=== PATIENT | male | born 1950 | race Caucasian/White ===

== ENCOUNTER 2017-01-25 13:57 | Emergency (ER) | payer OTHER, MEDICARE ==
[2017-01-25 15:01] LABS: HEMOGLOBIN 15.4 gm/dl (14.0-17.5); RED BLOOD COUNT 5.06 M/UL (4.20-5.50)
[2017-01-25 15:19] LABS: BUN/CREATININE RATIO 13 (0-10)
== END 2017-01-25 18:00 | disposition home or self-care (01) ==
LOC: ER1 13:57
PROVIDERS: Emergency Medicine
DX: N20.9 Urinary calculus, unspecified (principal); E11.9 Type 2 diabetes mellitus without complications; E78.5 Hyperlipidemia, unspecified; I10 Essential (primary) hypertension; F17.200 Nicotine dependence, unspecified, uncomplicated; Z87.442 Personal history of urinary calculi
CPT/HCPCS: 36415; 80053; 81001; 82150; 83690; 85025; 96374; 96375; 99284; J2270; J2405

== ENCOUNTER 2020-12-31 12:02 | Emergency (ER) | payer OTHER, MEDICARE ==
[~2020-12-31 12:02] MED LIST: IBUPROFEN400 MG PO; ZANAFLEX4 MG PO
[2020-12-31 12:47] LABS: HEMOGLOBIN 16.2 gm/dl (14.0-17.5); RED BLOOD COUNT 5.3 M/UL (4.20-5.50); WHITE BLOOD COUNT 7.4 K/UL (4.5-11.0)
[2020-12-31 13:07] LABS: BUN/CREATININE RATIO 11 (0-10)
[2020-12-31] MEDS ORDERED: Voltaren Gel 1 % TOP (14:43)
== END 2020-12-31 15:11 | disposition home or self-care (01) ==
LOC: ER1 12:02
PROVIDERS: Physician Assistant Medical
DX: S20.212A Contusion of left front wall of thorax, initial encounter (principal); E78.00 Pure hypercholesterolemia, unspecified; I11.9 Hypertensive heart disease without heart failure; E11.9 Type 2 diabetes mellitus without complications; F17.210 Nicotine dependence, cigarettes, uncomplicated; Z79.02 Long term (current) use of antithrombotics/antiplatelets; W19.XXXA Unspecified fall, initial encounter; Y92.009 Unspecified place in unspecified non-institutional (private) residence as the place of occurrence of the external cause
CPT/HCPCS: 70450; 71111; 73030; 80053; 81001; 82550; 82553; 83874; 84484; 85025; 93005; 99284

== ENCOUNTER 2022-04-04 19:06 | Emergency (ER) | payer OTHER, MEDICARE ==
[~2022-04-04 19:06] MED LIST changes: +Voltaren Gel 1 % TOP
== END 2022-04-04 22:25 | disposition home or self-care (01) ==
LOC: ER1 19:06
DX: S51.812A Laceration without foreign body of left forearm, initial encounter (principal); F17.200 Nicotine dependence, unspecified, uncomplicated; I11.9 Hypertensive heart disease without heart failure; E11.9 Type 2 diabetes mellitus without complications; Z79.82 Long term (current) use of aspirin; Z23 Encounter for immunization; Z79.02 Long term (current) use of antithrombotics/antiplatelets; W26.8XXA Contact with other sharp object(s), not elsewhere classified, initial encounter; Y92.009 Unspecified place in unspecified non-institutional (private) residence as the place of occurrence of the external cause
CPT/HCPCS: 12002; 90471; 90714; 99282